=== PATIENT | male | born 1965 | race African-American/Black ===

== ENCOUNTER 2016-08-27 16:29 | Emergency (ER) | payer BC, OTHER ==
[2016-08-27] MEDS ORDERED: Oseltamivir 75 MG CAP ONE (17:21)
[2016-08-27] MEDS ORDERED: Ibuprofen 800 MG TAB ONE (17:21)
== END 2016-08-27 18:42 | disposition home or self-care (01) ==
LOC: BURERS 16:29
DX: J11.1 Influenza due to unidentified influenza virus with other respiratory manifestations (principal); R19.7 Diarrhea, unspecified
CPT/HCPCS: 99283

== ENCOUNTER 2018-10-30 07:06 | Emergency (ER) | payer OTHER, SELFPAY ==
[2018-10-30] MEDS ORDERED: Lidocaine 1% PF 5 ML VIAL ONE (07:18)
[2018-10-30] MEDS ORDERED: Lidocaine 2% PF 5 ML VIAL ONE (07:19)
== END 2018-10-30 09:23 | disposition home or self-care (01) ==
LOC: BURERS 07:06
DX: S61.210A Laceration without foreign body of right index finger without damage to nail, initial encounter (principal); D64.9 Anemia, unspecified; W45.8XXA Other foreign body or object entering through skin, initial encounter
CPT/HCPCS: 99282; J2001